=== PATIENT | female | born 2000 | race Caucasian/White ===

== ENCOUNTER 2023-02-23 11:50 | Inpatient (IN) | payer OTHER ==
[~2023-02-23] VITALS: Ht 167.6 cm; Wt 64.9 kg
[2023-02-23] VITALS (10 sets, daily range): BP systolic 110–157; PULSE 99–125; RESP 13–26; TEMP 97.7–98.9; O2SAT 95–99
[2023-02-23 12:38] LABS: BASOPHILS % (AUTO) 0.2 % (0.0-2.0); EOSINOPHILS % (AUTO) 0.1 % (0.0-4.0); HEMATOCRIT 53.6 % (36-48); HEMOGLOBIN 17.3 g/dL (12.0-16.0); LYMPHOCYTES # (AUTO) 0.8 K/uL (1.0-5.5); LYMPHOCYTES % (AUTO) 4.9 % (20.5-51.5); MEAN CORPUSCULAR HEMOGLOBIN 33 pg (27-31); MEAN CORPUSCULAR HGB CONC 32 % (32-36); MEAN CORPUSCULAR VOLUME 101 fL (79.0-98.0); MONOCYTES # (AUTO) 1.1 K/uL (0.0-1.0); MONOCYTES % (AUTO) 6.8 % (1.7-9.3); NEUTROPHILS # (AUTO) 14.8 K/uL (1.8-7.7); PLATELET COUNT (AUTO) 392 K/uL (130-430); RED BLOOD CELL COUNT(AUTO) 5.34 MIL/uL (4.2-6.2); RED CELL DISTRIBUTION WIDTH 14.4 % (9.0-15.0); WHITE BLOOD COUNT (AUTO) 16.8 K/uL (4.8-10.8)
[2023-02-23 12:44] LABS: ANION GAP 27 (5-15); CALCIUM 9.1 mg/dL (8.4-11.0); CHLORIDE 99 mmol/L (98-107); GFR AFRICAN AMERICAN 112 mL/min (>90); GLUCOSE 343 mg/dL (74-106); POTASSIUM 3.7 mmol/L (3.5-5.1); SODIUM SERUM 134 mmol/L (136-145); UREA NITROGEN, BLOOD 9 mg/dL (8-21)
[2023-02-23 12:54] LABS: CARBON DIOXIDE 8 mmol/L (23-29); GFR NON AFRICAN-AMERICAN 93 mL/min (>90)
[2023-02-23 13:16] LABS: ALANINE AMINOTRANSFERASE 18 U/L (12-78); ASPARTATE AMINOTRANSFERASE 7 U/L (10-37); TOTAL BILIRUBIN 0.4 mg/dL (0.0-1.0); TOTAL PROTEIN, SERUM 8.3 g/dL (6.4-8.3)
[2023-02-23] MEDS ORDERED: NACL 0.9% 1,000 ML IV ONE (13:30)
[2023-02-23] MEDS ORDERED: INSULIN REGULAR, HUMAN 10 UNITS/0.1 ML, 3 ML VIAL IVP ONE ×2 (13:30→20:15)
[2023-02-23] MEDS ORDERED: CLINDAMYCIN 300 MG/50 ML D5W 50 ML IV ONE (13:45)
[2023-02-23 13:46] LABS: ACETONE, SERUM NEGATIVE (NEGATIVE)
[2023-02-23 13:47] LABS: ABG O2 SAT% ESTIMATE 97.5 % (94.0-100.0); BLOOD GAS PO2 132.3 mmHg (75.0-100.0)
[2023-02-23 13:49] LABS: BLOOD GAS HCO3 3.1 mmol/L (21.0-27.0); BLOOD GAS PCO2 10.9 mmHg (35.0-45.0); BLOOD GAS PH 7.078 (7.350-7.450)
[2023-02-23 13:50] LABS: ALLEN'S TEST POSITIVE (P); BLOOD GAS BASE EXCESS -24.5 mmol/L (-3.0-3.0)
[2023-02-23] MEDS ORDERED: INSULIN REGULAR, HUMAN 100 UNITS in NS 99 ML IV ONE ×2 (14:00)
[2023-02-23] MEDS ORDERED: ONDANSETRON HCL 4 MG/2 ML VIAL IVP ONE (14:15)
[2023-02-23] MEDS ORDERED: cefTRIAXone 1 GM VIAL IM SCH (14:15)
[2023-02-23] MEDS ORDERED: INSU100V11 SQ (14:18)
[2023-02-23] MEDS: BENZOCAINE/MENTHOL 1 EACH LOZENGE MM PRN ×3 (15:00→20:30)
[2023-02-23] MEDS ORDERED: D5NS 1,000 ML IV SCH (15:00)
[2023-02-23] MEDS ORDERED: INSULIN REGULAR, HUMAN 100 UNITS in NS 99 ML IV PRN ×2 (16:00)
[2023-02-23] MEDS: CEFTRIAXONE SOD 1 GM/ DEXTROSE,ISO 50 ML PREMIX IV SCH (17:37)
[2023-02-23] MEDS ORDERED: ACETAMINOPHEN 325 MG TABLET PO PRN ×2 (18:00)
[2023-02-23] MEDS ORDERED: INSULIN REGULAR, HUMAN 100 UNITS/ML, 3 ML VIAL (humuLIN R) SUBCUT SCH (18:00)
[2023-02-23 18:14] LABS: HEMOGLOBIN 16.6 g/dL (12.0-16.0); MEAN CORPUSCULAR HEMOGLOBIN 34 pg (27-31); MEAN CORPUSCULAR HGB CONC 34 % (32-36); MEAN CORPUSCULAR VOLUME 99 fL (79.0-98.0); PLATELET COUNT (AUTO) 354 K/uL (130-430); RED BLOOD CELL COUNT(AUTO) 4.94 MIL/uL (4.2-6.2); RED CELL DISTRIBUTION WIDTH 14.2 % (9.0-15.0)
[2023-02-23 18:22] LABS: ACETONE, SERUM POSITIVE (NEGATIVE)
[2023-02-23 18:27] LABS: BAND % (MANUAL) 8 % (0-6); BASOPHILS % (MANUAL) 0 % (0-2); EOSINOPHILS % (MANUAL) 0 % (0-7); LYMPHOCYTES % (MANUAL) 4 % (20-46); METAMYELOCYTES % 2 % (0-0); MONOCYTES % (MANUAL) 5 % (0-11); MYELOCYTES % 1 % (0-0); PLATELET ESTIMATE ADEQUATE (ADEQUATE)
[2023-02-23 18:30] LABS: ALANINE AMINOTRANSFERASE 19 U/L (12-78); ALBUMIN 3.6 g/dL (3.4-4.8); ANION GAP 23 (5-15); ASPARTATE AMINOTRANSFERASE 10 U/L (10-37); CALCIUM 8.7 mg/dL (8.4-11.0); CHLORIDE 104 mmol/L (98-107); CREATININE 0.64 mg/dL (0.55-1.30); GFR AFRICAN AMERICAN 145 mL/min (>90); GLUCOSE 264 mg/dL (74-106); POTASSIUM 3.4 mmol/L (3.5-5.1); SODIUM SERUM 134 mmol/L (136-145); TOTAL BILIRUBIN 0.4 mg/dL (0.0-1.0); TOTAL PROTEIN, SERUM 7.6 g/dL (6.4-8.3); UREA NITROGEN, BLOOD 8 mg/dL (8-21)
[2023-02-23 18:33] LABS: CARBON DIOXIDE 7 mmol/L (23-29)
[2023-02-23] MEDS ORDERED: NS 500 ML IV ONE (20:15)
[2023-02-23] MEDS: INSULIN REGULAR, HUMAN 100 UNITS in NS 99 ML IV PRN ×2 (20:56)
[2023-02-23] MEDS: NACL 0.9% 1,000 ML IV SCH (21:02)
[2023-02-24] VITALS (24 sets, daily range): BP systolic 99–133; PULSE 90–111; RESP 12–21; TEMP 97.6–98.8; O2SAT 95–99
[2023-02-24 01:08] LABS: CALCIUM 8.4 mg/dL (8.4-11.0); CREATININE 0.6 mg/dL (0.55-1.30)
[2023-02-24 01:11] LABS: POTASSIUM 2.9 mmol/L (3.5-5.1)
[2023-02-24] MEDS ORDERED: KCL 40 mEq in 100 mL (PREMIX) 100 ML IV ONE (01:15)
[2023-02-24] MEDS ORDERED: POTASSIUM CHLORIDE 20 MEQ TAB.PRT.SR PO ONE ×2 (01:30→20:00)
[2023-02-24] MEDS: NACL 0.9% 1,000 ML IV SCH ×3 (02:03→23:39)
[2023-02-24 04:36] LABS: BASOPHILS % (AUTO) 0.3 % (0.0-2.0); EOSINOPHILS % (AUTO) 0.4 % (0.0-4.0); HEMATOCRIT 42.7 % (36-48); HEMOGLOBIN 14.2 g/dL (12.0-16.0); LYMPHOCYTES # (AUTO) 0.9 K/uL (1.0-5.5); LYMPHOCYTES % (AUTO) 10.7 % (20.5-51.5); MEAN CORPUSCULAR HEMOGLOBIN 32 pg (27-31); MEAN CORPUSCULAR HGB CONC 33 % (32-36); MEAN CORPUSCULAR VOLUME 97 fL (79.0-98.0); MONOCYTES # (AUTO) 0.9 K/uL (0.0-1.0); MONOCYTES % (AUTO) 10.5 % (1.7-9.3); NEUTROPHILS # (AUTO) 6.5 K/uL (1.8-7.7); NEUTROPHILS % (AUTO) 78.1 % (40.0-70.0); PLATELET COUNT (AUTO) 333 K/uL (130-430); RED BLOOD CELL COUNT(AUTO) 4.42 MIL/uL (4.2-6.2); RED CELL DISTRIBUTION WIDTH 14.2 % (9.0-15.0); WHITE BLOOD COUNT (AUTO) 8.3 K/uL (4.8-10.8)
[2023-02-24 04:54] LABS: CREATININE 0.47 mg/dL (0.55-1.30); POTASSIUM 3.4 mmol/L (3.5-5.1)
[2023-02-24 08:18] LABS: BASOPHILS % (AUTO) 0.2 % (0.0-2.0); EOSINOPHILS # (AUTO) 0.1 K/uL (0.0-0.4); EOSINOPHILS % (AUTO) 0.8 % (0.0-4.0); HEMATOCRIT 42.8 % (36-48); HEMOGLOBIN 14.4 g/dL (12.0-16.0); LYMPHOCYTES # (AUTO) 0.8 K/uL (1.0-5.5); LYMPHOCYTES % (AUTO) 11.2 % (20.5-51.5); MEAN CORPUSCULAR HEMOGLOBIN 32 pg (27-31); MEAN CORPUSCULAR HGB CONC 34 % (32-36); MEAN CORPUSCULAR VOLUME 96 fL (79.0-98.0); MONOCYTES # (AUTO) 0.8 K/uL (0.0-1.0); MONOCYTES % (AUTO) 10.3 % (1.7-9.3); NEUTROPHILS # (AUTO) 5.7 K/uL (1.8-7.7); NEUTROPHILS % (AUTO) 77.5 % (40.0-70.0); PLATELET COUNT (AUTO) 321 K/uL (130-430); RED BLOOD CELL COUNT(AUTO) 4.43 MIL/uL (4.2-6.2); WHITE BLOOD COUNT (AUTO) 7.4 K/uL (4.8-10.8)
[2023-02-24 08:27] LABS: CALCIUM 8.4 mg/dL (8.4-11.0); CREATININE 0.4 mg/dL (0.55-1.30); POTASSIUM 3.4 mmol/L (3.5-5.1)
[2023-02-24 08:32] LABS: ALBUMIN 2.8 g/dL (3.4-4.8); TOTAL BILIRUBIN 0.4 mg/dL (0.0-1.0)
[2023-02-24 09:07] LABS: HEMOGLOBIN A1C 13.78 % (<5.7)
[2023-02-24] MEDS: BENZOCAINE/MENTHOL 1 EACH LOZENGE MM PRN (09:58)
[2023-02-24 12:09] LABS: CALCIUM 8.3 mg/dL (8.4-11.0); CREATININE 0.46 mg/dL (0.55-1.30)
[2023-02-24 16:21] LABS: BILIRUBIN,URINE NEGATIVE (NEGATIVE); BLOOD, URINE NEGATIVE (NEGATIVE); COLOR,URINE YELLOW (YELLOW); GLUCOSE,URINE 3+ (NEGATIVE); KETONES,URINE 3+ (NEGATIVE); LEUKOCYTE ESTERASE ,URINE TRACE (NEGATIVE); NITRITE, URINE NEGATIVE (NEGATIVE); PROTEIN URINE NEGATIVE (NEGATIVE); UROBILINOGEN,URINE 0.2 (0.2-1.0)
[2023-02-24 16:24] LABS: CLARITY/URINE HAZY (CLEAR)
[2023-02-24 16:36] LABS: BACTERIA,URINE FEW /HPF (None Seen); RBC,URINE 0-3 /HPF (0-3); WBC,URINE 20-50 /HPF (0-3)
[2023-02-24 16:37] LABS: MUCUS,URINE None Seen /LPF (None Seen); YEAST,URINE Rare /HPF (None Seen)
[2023-02-24 16:37] LABS: CALCIUM 8.6 mg/dL (8.4-11.0); CREATININE 0.51 mg/dL (0.55-1.30)
[2023-02-24] MEDS: CEFTRIAXONE SOD 1 GM/ DEXTROSE,ISO 50 ML PREMIX IV SCH (16:41)
[2023-02-24] MEDS: INSULIN LISPRO SLIDING SCALE 100 UNITS/ML, 3 ML VIAL (humaLOG) SUBCUT PRN (20:05)
[2023-02-24] MEDS: INSULIN REGULAR, HUMAN 100 UNITS in NS 99 ML IV PRN ×4 (21:52→23:49)
[2023-02-25] VITALS (23 sets, daily range): BP systolic 92–122; PULSE 69–101; RESP 12–22; TEMP 97–98.4; O2SAT 97–99
[2023-02-25] MEDS ORDERED: POTASSIUM CHLORIDE 20 MEQ TAB.PRT.SR PO ONE
[2023-02-25] MEDS: INSULIN REGULAR, HUMAN 100 UNITS in NS 99 ML IV PRN ×2 (01:54)
[2023-02-25 04:57] LABS: CALCIUM 8.4 mg/dL (8.4-11.0); CREATININE 0.28 mg/dL (0.55-1.30); POTASSIUM 3.1 mmol/L (3.5-5.1)
[2023-02-25 05:00] LABS: BASOPHILS % (AUTO) 0.4 % (0.0-2.0); EOSINOPHILS # (AUTO) 0.1 K/uL (0.0-0.4); EOSINOPHILS % (AUTO) 1.9 % (0.0-4.0); HEMATOCRIT 38.9 % (36-48); LYMPHOCYTES # (AUTO) 1.4 K/uL (1.0-5.5); LYMPHOCYTES % (AUTO) 30.5 % (20.5-51.5); MEAN CORPUSCULAR HEMOGLOBIN 32 pg (27-31); MEAN CORPUSCULAR HGB CONC 33 % (32-36); MEAN CORPUSCULAR VOLUME 96 fL (79.0-98.0); MONOCYTES # (AUTO) 0.6 K/uL (0.0-1.0); MONOCYTES % (AUTO) 13.1 % (1.7-9.3); NEUTROPHILS # (AUTO) 2.5 K/uL (1.8-7.7); NEUTROPHILS % (AUTO) 54.1 % (40.0-70.0); PLATELET COUNT (AUTO) 292 K/uL (130-430); RED BLOOD CELL COUNT(AUTO) 4.06 MIL/uL (4.2-6.2); RED CELL DISTRIBUTION WIDTH 14.2 % (9.0-15.0); WHITE BLOOD COUNT (AUTO) 4.6 K/uL (4.8-10.8)
[2023-02-25] MEDS: INSULIN GLARGINE 100 UNITS/ML, 10 ML VIAL SUBCUT SCH ×2 (06:17→21:33)
[2023-02-25] MEDS: INSULIN LISPRO SLIDING SCALE 100 UNITS/ML, 3 ML VIAL (humaLOG) SUBCUT PRN ×3 (06:20→21:32)
[2023-02-25] MEDS ORDERED: CHOLECALCIFEROL (VITAMIN D3) 2,000 UNIT TABLET PO ONE (11:15)
[2023-02-25] MEDS: INSULIN Lispro 100 UNITS/ML, 3 ML VIAL (humaLOG) SUBCUT SCH ×2 (11:26→18:04)
[2023-02-25] MEDS: NORMAL SALINE 5 ML DISP.SYRIN IVF SCH ×2 (11:29→21:29)
[2023-02-25] MEDS: CEFTRIAXONE SOD 1 GM/ DEXTROSE,ISO 50 ML PREMIX IV SCH (17:59)
[2023-02-25] MEDS: CHOLECALCIFEROL (VITAMIN D3) 2,000 UNIT TABLET PO SCH (21:26)
[2023-02-26 04:54] LABS: BASOPHILS # (AUTO) 0.1 K/uL (0.0-0.2); BASOPHILS % (AUTO) 2.3 % (0.0-2.0); EOSINOPHILS # (AUTO) 0.1 K/uL (0.0-0.4); HEMATOCRIT 39.2 % (36-48); HEMOGLOBIN 13.4 g/dL (12.0-16.0); LYMPHOCYTES # (AUTO) 1.8 K/uL (1.0-5.5); LYMPHOCYTES % (AUTO) 43.6 % (20.5-51.5); MEAN CORPUSCULAR HEMOGLOBIN 33 pg (27-31); MEAN CORPUSCULAR HGB CONC 34 % (32-36); MEAN CORPUSCULAR VOLUME 96 fL (79.0-98.0); MONOCYTES # (AUTO) 0.4 K/uL (0.0-1.0); MONOCYTES % (AUTO) 10.7 % (1.7-9.3); NEUTROPHILS # (AUTO) 1.7 K/uL (1.8-7.7); NEUTROPHILS % (AUTO) 41.4 % (40.0-70.0); PLATELET COUNT (AUTO) 293 K/uL (130-430); RED CELL DISTRIBUTION WIDTH 14.1 % (9.0-15.0); WHITE BLOOD COUNT (AUTO) 4.2 K/uL (4.8-10.8)
[2023-02-26 05:10] LABS: CALCIUM 8.4 mg/dL (8.4-11.0); CREATININE 0.27 mg/dL (0.55-1.30)
[2023-02-26 05:28] LABS: POTASSIUM 2.7 mmol/L (3.5-5.1)
[2023-02-26] MEDS: NORMAL SALINE 5 ML DISP.SYRIN IVF SCH (05:51)
[2023-02-26] MEDS: INSULIN Lispro 100 UNITS/ML, 3 ML VIAL (humaLOG) SUBCUT SCH ×2 (05:55→12:08)
[2023-02-26 05:57] VITALS: BP_SYST 107; PULSE 68; RESP 18; TEMP 98.3; O2SAT 98
[2023-02-26] MEDS ORDERED: POTASSIUM CHLORIDE 20 MEQ TAB.PRT.SR PO ONE (06:30)
[2023-02-26 07:00] VITALS: BP_SYST 93; PULSE 72; RESP 17; TEMP 98.3; O2SAT 96
[2023-02-26] MEDS ORDERED: KCL 20 mEq in 100 mL (PREMIX) 200 ML IV ONE (07:00)
[2023-02-26] MEDS: CHOLECALCIFEROL (VITAMIN D3) 2,000 UNIT TABLET PO SCH (10:20)
[2023-02-26] MEDS: INSULIN GLARGINE 100 UNITS/ML, 10 ML VIAL SUBCUT SCH (10:23)
[2023-02-26 11:51] VITALS: BP_SYST 113; PULSE 85; RESP 18; TEMP 98; O2SAT 95
[2023-02-26] MEDS: INSULIN LISPRO SLIDING SCALE 100 UNITS/ML, 3 ML VIAL (humaLOG) SUBCUT PRN (12:12)
[2023-02-26] MEDS ORDERED: INSU100V SUBCUT (12:30)
[2023-02-26] MEDS ORDERED: INSU100V9 SUBCUT (12:30)
[2023-02-26] MEDS ORDERED: DIF100 PO (12:47)
[2023-02-26] MEDS ORDERED: FLUCONAZOLE 100 MG TABLET (DIFLUCAN) PO ONE (13:00)
[2023-02-26] MEDS ORDERED: MAGN400T29 PO (13:01)
[2023-02-26 13:32] LABS: CALCIUM 9.1 mg/dL (8.4-11.0); CREATININE 0.51 mg/dL (0.55-1.30); POTASSIUM 3.8 mmol/L (3.5-5.1)
[2023-02-26 14:35] VITALS: BP_SYST 111; PULSE 87; RESP 18; TEMP 98.5; O2SAT 97
== END 2023-02-26 15:00 | disposition home or self-care (01) | DRG 639 ==
LOC: SED 11:50 → SIC 13:58 → SMU 02-25 19:13
PROVIDERS: ADMIT Internal Medicine; ATTEND Internal Medicine
DX: E10.10 Type 1 diabetes mellitus with ketoacidosis without coma (principal); D72.829 Elevated white blood cell count, unspecified; J03.90 Acute tonsillitis, unspecified; E87.6 Hypokalemia; E55.9 Vitamin D deficiency, unspecified; Z79.4 Long term (current) use of insulin; Z83.3 Family history of diabetes mellitus
CPT/HCPCS: 36415; 36600; 80048; 80053; 81000; 81001; 81015; 82009; 82306; 82803; 82962; 83037; 85007; 85025; 85027; 86308-TC; 86403; 87040; 87081; 87086; 99285; J0696; J1815; J2405; J3480; J3490